=== PATIENT | female | born 1990 | race Caucasian/White ===

== ENCOUNTER 2024-08-17 23:53 | Emergency (ER) | payer OTHER ==
[~2024-08-17] VITALS: Ht 165.1 cm; Wt 89.4 kg
[2024-08-18] MEDS ORDERED: OxyCODONE 5 mg/Acetamin 325 mg TABLET PO ONE (00:25)
[2024-08-18] MEDS ORDERED: RX Prepack 6 Tabs Oxycodone 5mg UD ONE (01:35)
[2024-08-18] MEDS ORDERED: HYDR1TAB94 PO (01:41)
== END 2024-08-18 02:11 | disposition home or self-care (01) ==
LOC: ER 23:53
DX: S02.2XXA Fracture of nasal bones, initial encounter for closed fracture (principal); S50.11XA Contusion of right forearm, initial encounter; S00.03XA Contusion of scalp, initial encounter; S00.83XA Contusion of other part of head, initial encounter; Y04.8XXA Assault by other bodily force, initial encounter
CPT/HCPCS: 70450; 70486; 72125; 73090; 99284-25; A9270